=== PATIENT | female | born 1935 | race African-American/Black ===

== ENCOUNTER 2017-08-10 11:50 | Inpatient (IN) | payer MEDICARE, OTHER ==
[~2017-08-10] VITALS: Ht 162.6 cm; Wt 72.6 kg
[2017-08-10] MEDS ORDERED: HYDR12.529 PO (11:54)
[2017-08-10] MEDS ORDERED: KDUR10 PO (11:54)
[2017-08-10] MEDS ORDERED: ATEN-42 PO (11:54)
[2017-08-10 12:45] LABS: BASOPHILS % 0.3 % (0.0-2.0); HEMATOCRIT. 32.9 % (36.0-48.0); LYMPHOCYTES % 24.6 % (20.0-50.0); MEAN CORPUSCULAR HEMOGLOBIN 30.2 pg (28.0-32.0); MEAN CORPUSCULAR VOLUME 90.6 fL (81.0-99.0); MEAN PLATELET VOLUME 8.7 fl (7.4-10.4); MONOCYTES % 12.3 % (2.0-8.0); NEUTROPHILS % 61.8 % (40.0-76.0); PLATELET 135 x1000/uL (130-400); RED BLOOD CELL COUNT 3.63 mill/uL (4.2-5.4); RED CELL DISTRIBUTION WIDTH 13.7 % (11.6-14.6)
[2017-08-10 12:48] LABS: PROTHROMBIN TIME 10.7 sec (9.4-11.6)
[2017-08-10 12:50] LABS: CARBON DIOXIDE 31 mEq/L (21-32); CHLORIDE 109 mEq/L (98-107)
[2017-08-10 12:57] LABS: TROPONIN I < 0.02 ng/mL (0.00-0.04)
[2017-08-10] MEDS ORDERED: ASPIRIN 325MG EC TABLET PO ONE (13:30)
[2017-08-10] MEDS ORDERED: MORPHINE SULFATE 4 MG/ML CPJ (NOT FOR IM USE) IV PRN (17:30)
[2017-08-10] MEDS ORDERED: DOCUSATE SODIUM 100MG CAPSULE PO PRN (17:30)
[2017-08-10] MEDS ORDERED: HYDROCODONE/ACETAMINOPHEN 5/325MG TABLET PO PRN (17:30)
[2017-08-10] MEDS ORDERED: ONDANSETRON HCL 4MG/2ML VIAL IV PRN (17:30)
[2017-08-10] MEDS ORDERED: LORAZEPAM 2MG/ML CPJ IV PRN (17:30)
[2017-08-10 20:00] VITALS: BP 146/64
[2017-08-10 20:10] LABS: CLARITY URINE CLEAR (CLEAR); COLOR URINE YELLOW (YELLOW); GLUCOSE URINE NEGATIVE (NEGATIVE); KETONES URINE NEGATIVE (NEGATIVE); LEUKOCYTE ESTERASE URINE 2+ (NEGATIVE); NITRITE URINE POSITIVE (NEGATIVE); OCCULT BLOOD URINE NEGATIVE (NEGATIVE); PH URINE 5.5 (4.5-8.0); PROTEIN URINE NEGATIVE (NEGATIVE); SPECIFIC GRAVITY URINE 1.011 (1.005-1.030); UROBILINOGEN URINE 0.2 E.U./dL (0.2-1.0)
[2017-08-10 21:00] VITALS: BP 146/65
[2017-08-10] MEDS: ATENOLOL 25MG TABLET PO SCH (21:28)
[2017-08-10 23:44] LABS: CREATINE KINASE 57 IU/L (26-192); TROPONIN I < 0.02 ng/mL (0.00-0.04)
[2017-08-11] VITALS: BP 104/65
[2017-08-11 04:00] VITALS: BP 143/55
[2017-08-11 06:43] LABS: BASOPHILS % 0.3 % (0.0-2.0); EOSINOPHILS % 1.7 % (0.0-5.0); HEMATOCRIT. 30.4 % (36.0-48.0); HEMOGLOBIN. 10.7 g/dL (12.0-16.0); LYMPHOCYTES % 29.5 % (20.0-50.0); MEAN CORPUSCULAR HEMOGLOBIN 31.5 pg (28.0-32.0); MEAN CORPUSCULAR VOLUME 89.4 fL (81.0-99.0); MEAN PLATELET VOLUME 9.3 fl (7.4-10.4); NEUTROPHILS % 54.5 % (40.0-76.0); PLATELET 120 x1000/uL (130-400); RED CELL DISTRIBUTION WIDTH 13.9 % (11.6-14.6)
[2017-08-11 07:06] LABS: CARBON DIOXIDE 28 mEq/L (21-32); CHLORIDE 111 mEq/L (98-107); CREATINE KINASE 49 IU/L (26-192); PHOSPHORUS 3.3 mg/dL (2.5-4.9); TROPONIN I < 0.02 ng/mL (0.00-0.04)
[2017-08-11 07:35] VITALS: BP 146/66
[2017-08-11] MEDS: ATENOLOL 25MG TABLET PO SCH (07:48)
[2017-08-11] MEDS ORDERED: ASPIRIN 81MG EC TABLET PO SCH (09:00)
[2017-08-11] MEDS ORDERED: FOLIC ACID 1MG TABLET PO SCH (09:00)
[2017-08-11] MEDS ORDERED: ENOXAPARIN 40MG/0.4ML SYR SUBCUT SCH (09:00)
[2017-08-11] MEDS ORDERED: SODIUM CHLORIDE 0.9% 1,000 ML IV SCH ×2 (10:00→12:45)
[2017-08-11 12:21] VITALS: BP 128/56
[2017-08-11 15:34] LABS: T4 FREE 0.91 ng/dL (0.76-1.46)
[2017-08-11 16:30] VITALS: BP 136/58
[2017-08-11 18:26] LABS: CREATINE KINASE 56 IU/L (26-192); CREATINE KINASE MB FRACTION 0.7 ng/mL (0.5-3.6); TROPONIN I < 0.02 ng/mL (0.00-0.04)
== END 2017-08-11 19:00 | disposition short-term general hospital (02) | DRG 74 ==
LOC: ER 11:56 → 6WST 13:27 → EDBEDREQ 14:08 → SUPCPDRO 17:17 → ENRESERV 18:41
PROVIDERS: ADMIT Internal Medicine Nephrology; ATTEND Internal Medicine Nephrology
DX: G90.8 Other disorders of autonomic nervous system (principal); D64.9 Anemia, unspecified; N39.0 Urinary tract infection, site not specified; I10 Essential (primary) hypertension; M19.90 Unspecified osteoarthritis, unspecified site; Z79.899 Other long term (current) drug therapy; Z85.3 Personal history of malignant neoplasm of breast
CPT/HCPCS: 36415; 70450; 70551; 71010; 78582; 80048; 80053; 80061; 81001; 82550; 82553; 83036; 83735; 83880; 84100; 84439; 84443; 84484; 85025; 85379; 85610; 93005; 93970; 97162; 99285; A9558; J1650; J7030